=== PATIENT | female | born 1965 | race Caucasian/White ===

== ENCOUNTER 2020-08-24 02:08 | Day surgery (SDC) | payer BC, SELFPAY ==
[2020-08-22 12:59] VITALS: BMI 28.8
[2020-08-24] VITALS (9 sets, daily range): BP systolic 118–137; BP diastolic 68–83; PULSE 63–89; RESP 12–20; TEMP 36.4–36.8; O2SAT 94–98
--- NOTE | 2020-08-24 07:00 | WPDANESEPPF ---
Anes - Initial Pre Proc Eval Procedure: Operation Date: 08/24/20 08:30 Proposed Procedures p Repair of Ulnar Digital Nerve to Left Index and Middle Finger, Explore and Possible Repair to Flexor Tendon To the Left Index Finger - Ronald Singer MD Date/Time: 08/24/20 07:00 Surgeon: Ronald Singer MD Pre Op Diagnosis: Laceration to left index and left middle fingers Patient Data Age: 54 Gender: F Height: 1.83 m Weight: 96.2 kg Allergies Allergy/AdvReac Type Severity Reaction Status Date / Time Penicillins AdvReac Intermediate Unknown Verified 08/24/20 06:41 Home Medications Medication Instructions Recorded Confirmed Type bupropion HCl 150 mg PO QAM 08/22/20 08/24/20 History fexofenadine [Elsa Allergy] 180 mg PO DAILY 08/22/20 08/24/20 History montelukast 10 mg PO DAILY 08/22/20 08/24/20 History multivit with min-folic acid 2 tablet PO DAILY 08/22/20 08/24/20 History [Adult Multivitamin Gummies] omeprazole 40 mg PO DAILY 08/22/20 08/24/20 History zolpidem 10 mg PO HS 08/22/20 08/24/20 History Patient hx anesthesia problems: none Family hx anesthesia problems: none [facility] Past Medical History Medical History (Updated 08/24/20 @ 07:04 by Shelton Dukes MD) Obesity Surgical History Surgical History (Updated 08/24/20 @ 07:04 by Shelton Dukes MD) History of gastric bypass Social History Social History Smoking status: Never smoker Living arrangements: with family Spiritual care concerns: No Anes - Eval Final PreProcedure Day of Procedure 08/24/20 07:00 Patient weight: obese Heart: regular rate and rhythm Lungs: clear to auscultation Airway: Mallampati scale class II and special considerations poor dentition Neurological: alert and oriented Last oral intake: >/= 8 hours ASA classification: III Emergent: no Anesthetic plan: proceed Anesthesia type and monitoring: general LMA and standard monitoring Informed Consent: The patient's anesthetic plan and its attendant risks and benefits were discussed with the patient/family/POA. Questions were solicited and answers provided to the satisfaction of the patient/family/POA.
[2020-08-24] MEDS: LACTATED RINGERS 1,000 ML 30 ML IV CONT ×2 (07:15→12:10)
--- NOTE | 2020-08-24 07:22 | WPDHPUPDATE1 ---
History and Physical Update Update Date/Time: 08/24/20 07:22 History and Physical has been reviewed, including an updated exam of the patient. There are NO changes in the patient's condition. Risks, benefits, and alternatives have been discussed and questions answered. Patient agrees to proceed with procedure.
[2020-08-24] MEDS: ceFAZolin 2 GM/D5W 50 ML 2 GM/50 ML BAG IVPB (08:25)
[2020-08-24] MEDS: LIDO 1%/EPINEPHRINE 1:100,000 20 ML VIAL 4 ML INFILTRATE (09:26)
[2020-08-24] MEDS: BACITRACIN OINTMENT 15 GM TUBE 1 APPLIC TOPICAL (09:34)
--- NOTE | 2020-08-24 09:55 | SUR.OPER ---
informed dr. poole of 60 minute time on tourniquet, no further orders received
[2020-08-24] MEDS: BUPIVACAINE HCL 0.5% PF 30 ML VIAL INFILTRATE (11:50)
--- NOTE | 2020-08-24 12:27 | PM.OP ---
Procedure Note - Brief Procedure Note - Brief Date of procedure: 08/24/20 Pre-op diagnosis: Laceration to left index and left middle fingers Post-op diagnosis: other (Partial laceration of ulnar digital nerve of left middle finger. Laceration of ulnar digital nerve of left index finger. Laceration of the FDP tendon, zone I, left index finger.) Procedure performed: Exploration of ulnar digital nerve of the middle finger. Repair of ulnar digital nerve and FDP tendon or the index finger. Anesthesia: GETA Surgeon: Ronald Singer MD Supervising Architect: Do Botello Estimated blood loss (mL): 10 Tourniquet time (min): 131 Drains: No Packing: No Pathology: none sent Complications: No immediate complications Condition: stable Disposition: PACU
[2020-08-24] MEDS: ONDANSETRON INJ 4 MG/2 ML VIAL IV PUSH (12:29)
--- NOTE | 2020-08-24 12:33 | W.PM.PROC2 ---
Procedure Note - Detailed Date of Procedure 08/24/20 Pre-op Diagnosis Laceration to left index and left middle fingers Post-op Diagnosis other ( Partial laceration of the ulnar digital nerve of the left middle finger. Complete laceration of the ulnar digital nerve and the flexor digitorum profundus tendon to the left index finger zone 1) Procedure Performed Exploration of the ulnar digital nerve of the left middle finger. Repair of the ulnar digital nerve to the left index finger. Repair of the flexor digitorum profundus to the left index finger zone 1. Surgeon Ronald Singer MD [employer] Anesthesia general Indications lacerations sustained 5 weeks ago in his kitchen Findings small partial laceration of a single fascicle of the ulnar digital nerve to the middle finger. complete laceration of the ulnar digital nerve to the index finger and flexor digitorum profundus in zone 1 Description of Procedure The patient's hand was marked in the holding area. He was taken to the operating room and placed supine on the operating table. A time-out was held and confirmed. He was given general endotracheal anesthesia. The left upper extremity was prepped and draped in usual fashion. The 2 digits were marked for mid lateral radial based incisions. Each was anesthetized with 1% lidocaine with epinephrine as an intrathecal block. The tourniquet was inflated to 250 mmHg. The exploration was begun in the middle finger. The skin flap was elevated to the point that we could visualize the ulnar digital nerve. The laceration site was clearly identified. In general the digital nerve was intact except for a small fascicle. This seemed to lie in anatomic position and we did not further address it. The skin flap was closed with running 5 0 nylon. The skin flap was elevated on the index finger where the injury was much larger and more dense scar was found. The digital nerve was identified proximally and distally and dissected into the neuroma. It was determined this was a complete laceration and the neuroma was excised. Allowing for slight flexion of the digit due to tendon repair I was were able to coapt the opposing ends under the microscope with 8 0 nylon. There were 3 usable fascicles distal and 1 proximal. The long flexor tendon was noted to be divided over the distal phalanx and the blunt and was in good condition. The proximal stump was noted to be adhesed to the distal end of the middle phalanx. The A 4 patrice was already damaged and we opened through that site. The stump was adherent to the middle phalanx and the sheath. This was carefully dissected free we did not visualize the short flexor tendon. The profundus could be mobilized satisfactorily with traction. It was determined we could repair that without significant flexion of the finger. The repair was done with 2 nonlocking 3-0 FiberWire sutures tied externally and was completed with a partially circumferential running 6 0 nylon. Through an opening in the C2 patrice we were able to demonstrate active flexion of the distal interphalangeal joint although that joint by now was fairly stiff. The microscope was brought in the nerve ends were trimmed. Allowing for slight flexion deformity caused by the tendon repair I felt that traction on the nerves was not excessive and the repair was done with interrupted 8 0 nylon sutures. There were 3 branches of the nerve noted distally and 1 larger 1 Proximally a single suture was placed in each of these. The skin was closed with a running 5 0 nylon. The total tourniquet time was 131 minutes. We took 15 minutes break at the 90 minutes point. 10 milliliter of Marcaine 0.5% plain were injected at the end of the case into the 2 digits. Estimated Blood Loss 20 Tourniquet Time 11 Drains No Packing No Pathology none sent Complications No immediate complications Condition stable
== END 2020-08-24 13:56 | disposition home or self-care (01) ==
PROVIDERS: PCP Orthopaedic Surgery Orthopaedic Surgery of the Spine; Visit Provider Plastic Surgery
PROC: (CPT 64831; principal; 2020-08-24 08:30)
DX: S66.121A Laceration of flexor muscle, fascia and tendon of left index finger at wrist and hand level, initial encounter (principal); S64.493A Injury of digital nerve of left middle finger, initial encounter; S64.491A Injury of digital nerve of left index finger, initial encounter; E66.9 Obesity, unspecified; Z68.29 Body mass index [BMI] 29.0-29.9, adult; W26.0XXA Contact with knife, initial encounter; Z98.84 Bariatric surgery status
CPT/HCPCS: 64831; 26350; 20103; A9270; J0690; J1644; J2250; J2405; J2704; J3010; J7120